=== PATIENT | male | born 2005 | race Caucasian/White ===

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

== ENCOUNTER 2024-03-27 19:08 | Emergency (ER) | payer OTHER, SELFPAY ==
[2024-03-27 19:40] VITALS: BP 131/75; PULSE 114; RESP 16; TEMP 37.8; O2SAT 99
--- NOTE | 2024-03-27 19:51 | ED.URI ---
HPI - URI/Sore Throat General Chief Complaint: Upper Respiratory Infection Stated Complaint: VOMITING/FEVER/COUGH/HEADACHE/DIZZY Time Seen by Provider: 03/27/24 19:45 Source: patient Mode of arrival: ambulatory Limitations: no limitations History of Present Illness HPI Narrative: Curtis is a 19-year-old male patient presenting to the clinic today with complaints of fever, chills, body aches, nausea, dizziness, and headache times 5-6 days. He denies any shortness of breath or chest pain. Cough is nonproductive. Highest fever was 102. MD elicited complaint: fever, cough and nasal congestion Related Data Home Medications ?Medication ?Instructions ?Recorded ?Confirmed ?Last Taken ?Type No Home Medications 04/01/22 04/01/22 Unknown History Allergies Allergy/AdvReac Type Severity Reaction Status Date / Time No Known Allergies Allergy Verified 03/27/24 20:00 Review of Systems Review of Systems: Pertinent positives per HPI. Patient denies any rash, headache, visual changes, dizziness, shortness of breath, chest pain, palpitations, diarrhea, constipation, abdominal pain, or any urinary issues. PMFSH Comments At the time of my signature, I reviewed and agree with the nursing past medical, surgical, social, and family history. There is no relevant family history pertinent to the patient complaint. Exam Narrative: General: Well-developed, well nourished, in no apparent distress Head: Normocephalic, atraumatic Eyes: Pupils equally round and reactive to light bilaterally, EOM intact, sclera and conjunctive clear, no discharge, lids normal Ears: TMs intact and congested, ear canals clear, no drainage, grossly hearing normal. Nose: Nares patent, clear nasal discharge, moderate inflammation, no sinus tenderness. Mouth: Oral pharynx red without lesions or masses, good dentition, MMM. Postnasal drip Neck: Supple, trachea midline, no enlargement of anterior or posterior cervical nodes, no thyroid masses or goiter palpable. Cardio: Regular rate and rhythm, s1 and s2 normal, no murmur appreciated. Resp: Clear to auscultation bilaterally, no rhonchi, rales, wheezing or rubs Course Course Emergency Course: Portions of this record may have been created with voice recognition software. Level of Care: Express Care Visit Vital Signs Vital signs: Vital Signs Temperature 37.8 C H 03/27/24 19:40 Pulse Rate 114 H 03/27/24 19:40 Respiratory Rate 16 03/27/24 19:40 Blood Pressure 131/75 03/27/24 19:40 Pulse Oximetry 99 03/27/24 19:40 Temperature 37.8 C H 03/27/24 19:40 Pulse Rate 114 H 03/27/24 19:40 Respiratory Rate 16 03/27/24 19:40 Blood Pressure 131/75 03/27/24 19:40 Pulse Oximetry 99 03/27/24 19:40 Vital signs reviewed MDM - URI/Sore Throat MDM Narrative Medical decision making narrative: At the time of visit patient is resting comfortably on the exam table. Patient appears to be nontoxic. Labs: COVID and influenza testing was performed. Influenza a test was positive. COVID testing was negative. Plan: Patient has influenza a. Supportive measures were discussed with the patient and they voiced understanding discharge instructions and agrees to treatment plan. Return precautions reviewed Differential Diagnosis Differential diagnosis: Likely upper respiratory infection, otitis media, sinusitis, viral infection, bronchitis, influenza, pharyngitis and other (COVID) Lab Data Labs: Lab Results 03/27/24 Range/Units 19:53 POC Influenza A Ag Positive (Negative) POC Influenza B Ag Negative (Negative) POC SARS CoV-2 Ag Negative (Negative) Discharge Plan Discharge Clinical Impression: Influenza A Patient Disposition: Home, Self-Care Condition: Stable Instructions: Antibiotic Form, Influenza (ED) Additional Instructions: Lung sounds are clear and there is no sign of a bacterial infection. Influenza A testing was positive. COVID testing was negative. Flu symptoms can last anywhere from 7-10 days May continue taking DayQuil and NyQuil. Increase fluids and stay well hydrated Tylenol/motrin for pain/fever Flonase and OTC antihistamines as directed Vicks vapor rub to open sinuses Sinus rinses for congestion Cepacol spray, cough drops, throat lozenges, warm tea with honey/lemon, gargle salt water to soothe throat BRAT diet for diarrhea Clear liquids x 24 hours then advance as tolerated for nausea/vomiting Go to the ED if you develop a worsening in your condition- high fever not controlled by Tylenol or Motrin, dehydration, weakness, lethargy, shortness of breath, or chest pain. Follow up with your PCP in 3-5 days if symptoms persist. Patient Language: Persian Prescriptions: No Action No Home Medications Follow-up/Referrals: Kiara Mix PA-C [Primary Care Provider] - Stand Alone Forms: Work/School Release IP Time of Disposition: 19:52 Quality NIHSS Nursing Documentation ED NIHSS nursing documentation: reviewed/agree
[2024-03-27 19:55] LABS: EDCOVIDSCREEN Negative (Negative); EDINFLUASCREEN Positive (Negative); EDINFLUBSCREEN Negative (Negative)
== END 2024-03-27 19:57 | disposition home or self-care (01) ==
PROVIDERS: Emergency Provider Nurse Practitioner Family; PCP Physician Assistant Medical
DX: J10.1 Influenza due to other identified influenza virus with other respiratory manifestations (principal); Z20.822 Contact with and (suspected) exposure to COVID-19
CPT/HCPCS: 87426; 87804; 99212; G0463

== ENCOUNTER 2024-11-11 18:48 | Emergency (ER) | payer OTHER, SELFPAY ==
[2024-11-11 18:57] VITALS: BP 133/87; PULSE 91; RESP 16; TEMP 36.6; O2SAT 99
[2024-11-11 19:14] LABS: EDCOVIDSCREEN Positive (Negative)
--- NOTE | 2024-11-11 19:23 | ED.URI ---
HPI - URI/Sore Throat General Chief Complaint: Upper Respiratory Infection Stated Complaint: Covid Test Time Seen by Provider: 11/11/24 19:00 Source: patient and RN notes reviewed Mode of arrival: ambulatory Limitations: no limitations History of Present Illness HPI Narrative: 19-year-old male presents Express Care complaining of upper respiratory symptoms for week. Patient reports a known exposure to COVID-19. Patient reports loss of taste and smell, body aches, headache, mild shortness of breath, congestion, runny nose, cough. Patient states symptoms have been steadily getting worse over the last week. Patient denies any difficulty breathing, chest pains, nausea vomiting, fevers, diarrhea, or any other symptoms. Related Data Home Medications ?Medication ?Instructions ?Recorded ?Confirmed ?Last Taken ?Type No Home Medications 04/01/22 04/01/22 Unknown History Allergies Allergy/AdvReac Type Severity Reaction Status Date / Time No Known Allergies Allergy Verified 03/27/24 20:00 Review of Systems Review of Systems: CONSTITUTIONAL: Denies fever, chills, or sweats. Positive for body aches. EYES: Denies visual changes, redness, or discharge. ENT: Positive for rhinorrhea, congestion. Negative for Sore throat hand otalgia. CARDIOVASCULAR: Denies chest pain, palpitations, or edema. RESPIRATORY: Positive for cough. Negative for dyspnea. GASTROINTESTINAL: Denies abdominal pain, nausea, vomiting, or diarrhea. GENITOURINARY: Denies dysuria or hematuria. SKIN: Denies rash or itching. MUSCULOSKELETAL: Denies back pain, joint pain, or myalgia. NEUROLOGIC: Denies headache, numbness, or weakness. PSYCHIATRIC: Denies anxiety or depression. All other systems reviewed are negative, except as documented in HPI. PMFSH Comments At the time of my signature, I reviewed and agree with the nursing past medical, surgical, social, and family history. There is no relevant family history pertinent to the patient complaint. Exam Narrative: GENERAL: This is a well-nourished, well-developed adult, in no apparent distress. They are non ill-appearing, nontoxic appearing. HEAD: normocephalic, atraumatic. EYES: Sclera clear/white. Vision is grossly intact. Conjunctiva normal bilaterally. Extraocular movements intact. EARS: External ears normal, auditory canals clear and without drainage, TMs without erythema or perforation. Hearing grossly intact. NOSE: External nose normal with no obvious nasal discharge, nasal turbinates erythematous, no rhinorrhea. THROAT: Mucous membranes moist, posterior pharynx erythematous without exudate. Uvula is midline. Postnasal drip present. NECK: Neck supple, non-tender without lymphadenopathy, masses or thyromegaly. CARDIOVASCULAR: Regular rate and rhythm without murmurs, gallops, or rubs. RESPIRATORY: Clear to auscultation. Breath sounds equal bilaterally. No wheezes, rales, or rhonchi. SKIN: warm, Dry, intact with no suspicious lesions or rash, good texture and turgor. NEURO: awake, alert, and oriented to person, place and time. There were no obvious focal neurologic abnormalities. EXTREMITIES: No joint tenderness, effusion, or edema noted. BACK: Nontender without deformity. Course Course Emergency Course: Portions of this record may have been created with voice recognition software Level of Care: Express Care Visit Vital Signs Vital signs: Vital Signs Temperature 97.8 F 11/11/24 18:57 Pulse Rate 91 11/11/24 18:57 Respiratory Rate 16 11/11/24 18:57 Blood Pressure 133/87 11/11/24 18:57 Pulse Oximetry 99 11/11/24 18:57 Temperature 97.8 F 11/11/24 18:57 Pulse Rate 91 11/11/24 18:57 Respiratory Rate 16 11/11/24 18:57 Blood Pressure 133/87 11/11/24 18:57 Pulse Oximetry 99 11/11/24 18:57 MDM - URI/Sore Throat MDM Narrative Medical decision making narrative: Rapid positive COVID test. Patient's symptoms consistent with COVID-19. Patient no apparent respiratory distress. Patient nontoxic-appearing. Recommend supportive therapy. Advised patient's symptoms are improved in 10-14 days to have a re-evaluation. Discussed physical exam findings. Advised supportive measures and signs/symptoms to go to the ER. Pt is appropriate for outpt treatment and f/u. Differential Diagnosis Differential diagnosis: Likely upper respiratory infection, sinusitis, viral infection, influenza and other (COVID) Lab Data Attestation: I reviewed the patient's lab results. Labs: Lab Results 11/11/24 Range/Units 19:12 POC SARS CoV-2 Ag Positive (Negative) Discharge Plan Discharge Clinical Impression: COVID-19 Patient Disposition: Home Condition: Stable Instructions: Antibiotic Form, COVID-19 (Coronavirus Disease 2019) (ED) Additional Instructions: You tested positive for COVID. COVID can last up to 10-14 days. You may take ibuprofen 600 mg to 800 mg every 6-8 hours. Do not exceed more than 800 mg of ibuprofen per dose. Do not exceed more than 3200 mg ibuprofen in a day. You may take up to 1000 mg Tylenol every 6-8 hours. Do not exceed 1000 mg per dose, do exceed more than 4000 mg of Tylenol in a day. Do not take Tylenol if your taking DayQuil and NyQuil as her only contains Tylenol. Rest and drink plenty of fluids. Follow-up with your PCP in 5-7 days. Please go to ER if he develops shortness of breath, chest pains, difficulty breathing, nausea, vomiting, or any serious concerns. Patient Language: Azerbaijani Prescriptions: No Action No Home Medications Follow-up/Referrals: PHYSICIAN,SCHOOL PSYCHOLOGICAL EXAMINER [Primary Care Provider, Internal Medicine] Stand Alone Forms: Work/School Release IP Time of Disposition: 19:22
== END 2024-11-11 19:24 | disposition home or self-care (01) ==
DX: U07.1 COVID-19 (principal)
CPT/HCPCS: 87426; 99212; G0463